=== PATIENT | male | born 1955 | race Caucasian/White ===

== ENCOUNTER 2019-11-30 16:58 | Emergency (ER) | payer MEDICARE, BC ==
--- NOTE | 2019-11-30 17:02 | EDM.PDOC ---
ED HPI GENERAL MEDICAL PROBLEM - General Chief Complaint: Laceration Stated Complaint: RIGHT HAND INJURY Time Seen by Provider: 11/30/19 17:00 Source of Information: Reports: Patient History Limitations: Reports: No Limitations - History of Present Illness INITIAL COMMENTS - FREE TEXT/NARRATIVE: HISTORY AND PHYSICAL: History of present illness: Patient is a 64-year-old male who presents to the emergency room today with complaints of right hand injury. He states he was putting a platform into the bed of the truck when it slipped and fell hitting his right hand. This resulted in a large laceration just below the fifth digit. He denies any other extremity involvement. Offers no systemic complaints. Unsure of last tetanus update. Review of systems: As per history of present illness and below otherwise all systems reviewed and negative. Past medical history: As per history of present illness and as reviewed below otherwise noncontributory. Surgical history: As per history of present illness and as reviewed below otherwise noncontributory. Social history: See social history for further information Family history: As per history of present illness and as reviewed below otherwise noncontributory. Physical exam: General: Well developed and well nourished 64-year-old male. Alert and oriented. Nontoxic-appearing and in no acute distress. HEENT: Nontender, normocephalic, pupils equal and reactive bilaterally, negative for conjunctival pallor or scleral icterus, mucous membranes moist, trachea midline. No drooling or trismus noted. No meningeal signs. No hot potato voice noted. Lungs: Clear to auscultation, breath sounds equal bilaterally, chest nontender. Heart: S1S2, regular rate and rhythm without overt murmur Abdomen: Soft, nondistended, nontender. Skin: 7 cm irregular "Z" shaped laceration to the dorsal ulnar aspect of right hand. 0.5cm superficial laceration just below larger one (at wrist). Otherwise remaining skin is intact, warm, dry. No lesions or rashes noted. Extremities: See skin for details, moves all extremities per self without difficulty or deficits, good flexion/extenion of hand, strong radial pulse. Cap refill less than 3 seconds on affected hand. Mild numbness sensation over the distal 5th digit. Neurovascular unremarkable. Neuro: Awake, alert, oriented. Cranial nerves II through XII unremarkable. Cerebellum unremarkable. Motor and sensory unremarkable throughout. Exam nonfocal. Notes: Negative hand x-ray. 1% lidocaine was used to anesthetize the area. Chlorhexidine and wound wash was used to thoroughly irrigate and cleanse the area. Usual and customary procedures were followed for suture placement. 4-0 nylon, #8 interrupted sutures were placed. Bacitracin nonstick dressing applied. The need for follow-up with hand surgery along with signs and symptoms to monitor for were reviewed. Supportive care measures were reviewed and discussed. Voices understanding and is agreeable to plan of care. Denies any further questions or concerns at this time. Diagnostics: Hand x-ray Therapeutics: Tdap, lidocaine Prescription: Tramadol Impression: Hand injury, right Laceration Plan: 1. Rest, ice and elevate the affected extremity. Keep the area clean and dry. Continue to monitor for signs of infection. Sutures to be removed in 7-10 days. 2. Tylenol and/or ibuprofen as needed for pain management. Tramadol for moderate to severe pain. Can cause drowsiness. 3. Please follow-up with orthopedics or the hand surgeon as we discussed. Return to the ED as needed and as discussed. Definitive disposition and diagnosis as appropriate pending reevaluation and review of above. right hand Pain Score (Numeric/FACES): 6 - Related Data Allergies Allergy/AdvReac Type Severity Reaction Status Date / Time venom-honey bee Allergy Anaphylactic Verified 11/30/19 17:21 [bee venom (honey bee)] Shock Home Meds: Home Meds Triamterene/Hydrochlorothiazid [Triamterene-HCTZ 37.5-25 MG] 1 each PO DAILY [History] atorvaSTATin [Lipitor] 10 mg PO BEDTIME 01/28/16 [History] Allopurinol [Zyloprim] 300 mg PO DAILY 11/30/19 [History] Meclizine [Antivert] 25 mg PO DAILY PRN 11/30/19 [History] Naproxen 500 mg PO ASDIRECTED PRN 11/30/19 [History] traMADol [Ultram] 50 mg PO Q4H PRN #15 tab 11/30/19 [Rx] Past Medical History HEENT History: Reports: Other (See Below) Other HEENT History: menieres disease Cardiovascular History: Reports: Hypertension Social & Family History - Family History Family Medical History: Noncontributory ED ROS GENERAL - Review of Systems Review Of Systems: Comprehensive ROS is negative, except as noted in HPI. ED EXAM, SKIN/RASH Exam: See Below (See dictation) ED SKIN PROCEDURES - Laceration/Wound Repair Right Hand Appearance: Subcutaneous, Irregular, Clean Distal NVT: Neuro & Vascular Intact, No Tendon Injury Anesthetic Type: Local Local Anesthesia - Lidocaine (Xylocaine): 1% Plain Local Anesthetic Volume: Other (6) Skin Prep: Chlorhexidine (Hibiciens), Saline, Sterile Drape Saline Irrigation (cc's): 50 Exploration/Debridement/Repair: Wound Explored, In a Bloodless Field, Explored to Base, No Foreign Material Found Closed with: Sutures Lac/Wound length In cm: 7 Suture Size: 4-0 # of Sutures: 8 Suture Type: Nylon, Interrupted, Simple Drain Placement: No Sterile Dressing Applied: Provider Tetanus Status Addressed: Yes Complications: No Course - Vital Signs Last Recorded V/S: Last Vital Signs Temp 97.6 F 11/30/19 17:19 Pulse 82 11/30/19 17:19 Resp 18 11/30/19 17:19 BP 152/83 H 11/30/19 17:19 Pulse Ox 98 11/30/19 17:19 - Orders/Labs/Meds Orders: Active Orders 24 hr Category Date Time Status Vaccines to be Administered [RC] PER UNIT ROUTINE Care 11/30/19 17:18 Active Meds: Medications Discontinued Medications Generic Name Dose Route Start Last Admin Trade Name Quiqueq PRN Reason Stop Dose Admin Bacitracin 1 dose 11/30/19 17:33 11/30/19 17:36 Bacitracin Oint 1 Gm TOP 11/30/19 17:34 1 dose ONETIME ONE Administration Diphtheria/Tetanus/Acell Pertussis 0.5 ml 11/30/19 17:17 11/30/19 17:32 Adacel IM 11/30/19 17:18 0.5 ml .ONCE ONE Administration Lidocaine HCl 10 ml 11/30/19 17:17 11/30/19 17:33 Xylocaine 1% INJECT 11/30/19 17:18 Not Given ONETIME ONE Lidocaine HCl Confirm 11/30/19 17:25 11/30/19 17:32 Xylocaine-Mpf 1% Administered 11/30/19 17:26 Not Given Dose 10 ml .ROUTE .STK-MED ONE Lidocaine HCl 10 ml 11/30/19 17:32 11/30/19 17:33 Xylocaine-Mpf 1% INJECT 11/30/19 17:33 10 ml ONETIME ONE Administration Departure - Departure Time of Disposition: 18:02 Disposition: Home, Self-Care 01 Clinical Impression: Laceration Hand injury Qualifiers: Encounter type: initial encounter Laterality: right Qualified Code(s): S69.91XA - Unspecified injury of right wrist, hand and finger(s), initial encounter - Discharge Information Instructions: Laceration Care, Adult, [id number] Referrals: Duc Cavazos MD [Primary Care Provider] - Forms: ED Department Discharge Additional Instructions: The following information is given to patients seen in the emergency department who are being discharged to home. This information is to outline your options for follow-up care. We provide all patients seen in our emergency department with a follow-up referral. The need for follow-up, as well as the timing and circumstances, are variable depending upon the specifics of your emergency department visit. If you don't have a primary care physician on staff, we will provide you with a referral. We always advise you to contact your personal physician following an emergency department visit to inform them of the circumstance of the visit and for follow-up with them and/or the need for any referrals to a consulting specialist. The emergency department will also refer you to a specialist when appropriate. This referral assures that you have the opportunity for follow-up care with a specialist. All of these measure are taken in an effort to provide you with optimal care, which includes your follow-up. Under all circumstances we always encourage you to contact your private physician who remains a resource for coordinating your care. When calling for follow-up care, please make the office aware that this follow-up is from your recent emergency room visit. If for any reason you are refused follow-up, please contact the [facility] Emergency Department at and asked to speak to the emergency department charge nurse. [facility] [address] [place] [id number] [id number] 1. Rest, ice and elevate the affected extremity. Keep the area clean and dry. Continue to monitor for signs of infection. Sutures to be removed in 7-10 days. 2. Tylenol and/or ibuprofen as needed for pain management. Tramadol for moderate to severe pain. Can cause drowsiness. 3. Please follow-up with orthopedics or the hand surgeon as we discussed. Return to the ED as needed and as discussed. Sepsis Event Note - Focused Exam Vital Signs: Vital Signs Temp Pulse Resp BP Pulse Ox 11/30/19 17:19 97.6 F 82 18 152/83 H 98 Date Exam was Performed: 11/30/19 Time Exam was Performed: 17:50 - My Orders Last 24 Hours: My Active Orders 11/30/19 17:18 Vaccines to be Administered [RC] PER UNIT ROUTINE - Assessment/Plan Last 24 Hours: My Active Orders 11/30/19 17:18 Vaccines to be Administered [RC] PER UNIT ROUTINE
[2019-11-30] MEDS ORDERED: Diphtheria,Pertussis(Acell),Tetanus Vaccine 0.5 ML Syringe IM ONE (17:17)
[2019-11-30] MEDS ORDERED: Lidocaine 1% 10 ML MDV INJECT ONE (17:17)
[2019-11-30] MEDS ORDERED: Bacitracin Oint 1 GM U/D Packet TOP ONE (17:33)
--- NOTE | 2019-11-30 17:49 | CR ---
Right hand: 3 views of the right hand were obtained. Comparison: No prior right hand study. Mild joint space narrowing is scattered within the DIP, PIP and MCP joints. No focal erosive change is seen. Lucent line is noted within the base of the 2nd metacarpal. Uncertain if this is artifact or represents a nondisplaced fracture. No additional abnormality is appreciated. Impression: 1. Lucent line within the base of the 2nd metacarpal as described above. 2. Degenerative change. Diagnostic code #3 This report was dictated in MDT
[2019-11-30] MEDS ORDERED: Acetaminophen/HYDROcodone 325-5 MG Tab PO ONE (17:50)
[2019-11-30 18:00] VITALS: BP 140/76; PULSE 83
== END 2019-11-30 18:05 | disposition home or self-care (01) ==
LOC: MW.ED 16:58
DX: S61.411A Laceration without foreign body of right hand, initial encounter (principal); S61.511A Laceration without foreign body of right wrist, initial encounter; I10 Essential (primary) hypertension; Z79.899 Other long term (current) drug therapy; Z23 Encounter for immunization; Z91.030 Bee allergy status; W01.198A Fall on same level from slipping, tripping and stumbling with subsequent striking against other object, initial encounter
CPT/HCPCS: 12002; 73130; 90471; 90715; 99283; A9270; J2001

== ENCOUNTER 2022-03-24 09:45 | Day surgery (SDC) | payer MEDICARE, BC ==
[~2022-03-24 09:45] MED LIST: Glycopyrrolate 0.2 MG/ML SDV ONE; Lactated Ringers 1,000 ML IV SCH; Propofol 200 MG/20 ML SDV ONE; Sodium Chloride 0.9% 10 ML Syringe FLUSH PRN; Sodium Chloride 0.9% 2.5 ML Syringe FLUSH PRN; Sodium Chloride 0.9% 20 ML SDV IV PRN; fentaNYL 100 MCG/2 ML SDV ONE
[2022-03-24 13:53] VITALS: BP 121/72; PULSE 60
== END 2022-03-24 12:45 | disposition home or self-care (01) ==
LOC: MW.SDS 09:45
PROVIDERS: ATTEND Surgery
DX: Z12.11 Encounter for screening for malignant neoplasm of colon (principal); K57.30 Diverticulosis of large intestine without perforation or abscess without bleeding; I10 Essential (primary) hypertension; N52.9 Male erectile dysfunction, unspecified; E03.9 Hypothyroidism, unspecified; E78.00 Pure hypercholesterolemia, unspecified; Z91.030 Bee allergy status; Z79.899 Other long term (current) drug therapy; Z79.890 Hormone replacement therapy; Z98.890 Other specified postprocedural states
CPT/HCPCS: G0121; J2704; J3010; J3490; 00812